=== PATIENT | male | born 1985 | race Two or more races ===

== ENCOUNTER 2017-12-03 14:25 | Outpatient (CLI) | payer OTHER | END 2017-12-03 14:32 | disposition home or self-care (01) | LOC: SONOGRAMA 14:25 | DX: I86.1 Scrotal varices (principal) ==

== ENCOUNTER 2022-11-02 06:39 | Outpatient (CLI) | payer OTHER | END 2022-11-02 06:46 | disposition home or self-care (01) | LOC: LAB 06:39 | PROVIDERS: ATTEND Internal Medicine | DX: K59.00 Constipation, unspecified (principal); R10.30 Lower abdominal pain, unspecified; E78.5 Hyperlipidemia, unspecified; R10.13 Epigastric pain; R63.4 Abnormal weight loss; Z13.29 Encounter for screening for other suspected endocrine disorder; Z13.220 Encounter for screening for lipoid disorders ==

== ENCOUNTER 2022-11-10 07:11 | Outpatient (CLI) | payer OTHER | END 2022-11-10 07:12 | disposition home or self-care (01) | LOC: SONOGRAMA 07:11 | PROVIDERS: ATTEND Internal Medicine | DX: R10.13 Epigastric pain (principal); R10.11 Right upper quadrant pain ==

== ENCOUNTER 2023-06-05 09:49 | Outpatient (CLI) | payer OTHER | END 2023-06-05 09:52 | disposition home or self-care (01) | LOC: LAB 09:49 | PROVIDERS: ATTEND General Practice | DX: J06.9 Acute upper respiratory infection, unspecified (principal); A42.9 Actinomycosis, unspecified ==

== ENCOUNTER 2024-11-19 12:47 | Outpatient (CLI) | payer OTHER | END 2024-11-19 12:49 | disposition home or self-care (01) | LOC: SONOGRAMA 12:47 | PROVIDERS: ATTEND Urology | DX: N50.812 Left testicular pain (principal) ==

== ENCOUNTER 2024-12-15 06:07 | Outpatient (CLI) | payer OTHER ==
[2024-12-15 07:15] LABS: PH,URINE 5.5 (5.0-8.0); URINE APPEARANCE Clear; URINE BILIRRUBIN Negative (NEGATIVE); URINE BLOOD Small; URINE COLOR Yellow; URINE GLUCOSE Negative (NEGATIVE); URINE KETONE Negative (NEGATIVE); URINE LEUKOCYTE Negative; URINE NITRATE Negative; URINE PROTEIN Negative (NEGATIVE); URINE UROBILINOGEN 0.2 E.U./dl
[2024-12-15 07:17] LABS: URINE RBC 2.2 uL (0.0-20.8); URINE WBC 2.5 uL (0.0-23.2)
[2024-12-15 07:18] LABS: URINE BACTERIA 3.6 uL (0.0-1933); URINE EPITHELIAL CELLS 0.7 uL (0.0-38.8)
[2024-12-15 07:59] LABS: BILIRUBIN TOTAL 0.63 mg/dL (0.3-1.2); CALCIUM 9.5 mg/dL (8.5-10.1); CREATININE SERUM 0.81 mg/dL (0.70-1.30); GFR 105.01; GLOBULINA 2.9 G/DL (2.4-3.5); POTASSIUM 4.15 mEq/L (3.5-5.1); TOTAL PROTEIN 6.9 gm/dL (6.4-8.2)
== END 2024-12-15 06:09 | disposition home or self-care (01) ==
LOC: LAB 06:07
PROVIDERS: ATTEND Urology
DX: N50.812 Left testicular pain (principal); Z12.5 Encounter for screening for malignant neoplasm of prostate

== ENCOUNTER 2025-02-12 10:20 | Outpatient (CLI) | payer OTHER | END 2025-02-12 10:29 | disposition home or self-care (01) | LOC: RAD 10:20 | DX: M99.01 Segmental and somatic dysfunction of cervical region (principal); M99.02 Segmental and somatic dysfunction of thoracic region; M99.03 Segmental and somatic dysfunction of lumbar region ==